=== PATIENT | male | born 1985 | race African-American/Black ===

== ENCOUNTER 2016-09-20 15:20 | Emergency (ER) | payer OTHER ==
--- NOTE | ~2016-09-20 | CR151 ---
[facility] A Service of [facility] & [facility] RADIOLOGY TEXT RESULTS PATIENT: HANNAH MICHELLE LOCATION: [facility] : [birth year] UNIT #: [id number] AGE: [address]: KHAI DELEON APRN SEX: M ORDER DR: [id number] [facility] [address] [place], [place] [address] [id number] E MR#: [id number] Acc #: [id number] NAME: HANNAH MICHELLE : 1985 SEX: M STUDY DATE/TIME: 09/20/2016 19:09 UNIT: [facility] ROOM: STUDY DESCRIPTION: CR Hip Min 2 Views Rt Attending Physician: Khai Deleon Aprn Ordering Physician: Khai Deleon Aprn Primary Care Physician: [facility] MEDICAL IMAGING REPORT This report is preliminary unless electronic signature is present EXAM Right hip 3 views 09/20/2016 HISTORY Right hip pain status post fall today. FINDINGS AP and oblique examination of the hip shows adequate mineralization of the bones and a normal anatomic relationship of the femoral head with the acetabulum. There are no hypertrophic changes, fractures, dislocation, or joint capsular distension. No radiopaque foreign body is present about the soft tissues of the hip. IMPRESSION Normal hip. Dictated by... Terry Kong M.D. THIS IS AN ELECTRONICALLY VERIFIED REPORT Terry Kong M.D. at 09/21/2016 2:13 PM MARCOS/jose a TD: 09/21/2016 06:29 JOB #: [id number] MEDICAL IMAGING REPORT Page 1 of 1 COPY
--- NOTE | ~2016-09-20 | CR253 ---
[facility] A Service of [facility] & [facility] RADIOLOGY TEXT RESULTS PATIENT: HANNAH MICHELLE LOCATION: [facility] : 89 UNIT #: [id number] AGE: [address]: KHAI DELEON APRN SEX: M ORDER DR: [id number] [place], [place] [address] [id number] E MR#: [id number] Acc #: [id number] NAME: HANNAH MICHELLE : 1985 SEX: M STUDY DATE/TIME: 09/20/2016 19:08 UNIT: [facility] ROOM: STUDY DESCRIPTION: CR Tibia and Fibula 2 Views Rt Attending Physician: Khai Deleon Aprn Ordering Physician: Khai Deleon Aprn Primary Care Physician: [facility] MEDICAL IMAGING REPORT This report is preliminary unless electronic signature is present EXAM Right tib-fib, 09/20 INDICATION Leg pain today. Possible fall. FINDINGS There is no evidence of fracture, dislocation, or radiopaque foreign body. IMPRESSION Normal tibia and fibula. Dictated by... Jose De Jesus Calderón Jr., M.D. THIS IS AN ELECTRONICALLY VERIFIED REPORT Jose De Jesus Calderón Jr., M.D. at 09/21/2016 8:47 PM ABRAHAM/vincent TD: 09/21/2016 05:24 JOB #: [id number] MEDICAL IMAGING REPORT Page 1 of 1 COPY
[2016-09-20 17:14] LABS: URINE SOURCE CLEAN CATCH
[2016-09-20 17:23] LABS: URINE APPEARANCE CLEAR; URINE BILIRUBIN NEG (NEG); URINE BLOOD NEG (NEG); URINE COLOR YELLOW; URINE GLUCOSE NEG (NEG); URINE KETONE NEG (NEG); URINE LEUKOCYTE ESTERASE NEG (NEG); URINE NITRATE NEG (NEG); URINE PROTEIN NEG (NEG); URINE SPECIFIC GRAVITY 1.019 (1.003-1.035); URINE UROBILINOGEN 0.2 MG/DL (NEG)
[2016-09-20 17:28] LABS: CULTURE INDICATED? NO
[2016-09-20 17:55] LABS: BASOPHIL% 0.6 % (0-2.5); EOSINOPHIL# 0.1 X10e3 (0-0.7); EOSINOPHIL% 2.4 % (0.0-7.0); HEMATOCRIT 46.5 % (38.0-50.0); HEMOGLOBIN 15.7 gm/dL (13.0-16.0); LYMPHOCYTE# 2.2 X10e3 (1.0-3.5); LYMPHOCYTE% 38.5 % (17.0-45.0); MEAN CELL VOLUME 90.8 FL (83-96); MEAN CORPUSCULAR HEMOGLOBIN 30.7 PG (28-34); MEAN CORPUSCULAR HGB CONC 33.7 g/dL (30-36); MEAN PLATELET VOLUME 9.8 FL (6.5-11.5); MONOCYTE# 0.4 X10e3 (0-1.0); MONOCYTE% 6.1 % (3.0-12.0); NEUTROPHIL% 52.4 % (40-75); RED BLOOD COUNT 5.11 X10e (3.90-5.60); RED CELL DISTRIBUTION WIDTH 13.3 % (11.0-15.5); WHITE BLOOD COUNT 5.8 X10e3 (4.0-10.5)
[2016-09-20 17:57] LABS: DIFF IND NO; PLATELET COUNT 220 X10e3 (140-420)
[2016-09-20 18:04] LABS: ALBUMIN SERUM 4.4 g/dL (3.5-5.0); BILIRUBIN, DIRECT 0.1 mg/dL (0.0-0.2); BILIRUBIN,INDIRECT 0.6 mg/dL (0.0-0.9); BILIRUBIN,TOTAL 0.7 mg/dL (0.2-2.0); BUN/CREATININE RATIO 17.5; CALCIUM SERUM 9.4 mg/dL (8.4-10.2); CREATININE SERUM 0.8 mg/dL (0.6-1.4); GLOM FILT RATE Estimated 121.6 mL/min (>60); POTASSIUM 4.2 mmol/L (3.5-5.1); PROTEIN TOTAL SERUM 8.2 g/dL (6.0-8.3)
== END 2016-09-20 21:05 | disposition home or self-care (01) ==
LOC: CED 15:20
PROVIDERS: Emergency Medicine
DX: S70.01XA Contusion of right hip, initial encounter (principal); S80.11XA Contusion of right lower leg, initial encounter; W18.30XA Fall on same level, unspecified, initial encounter; Y93.89 Activity, other specified; Y99.8 Other external cause status
CPT/HCPCS: 36415; 73502; 73590; 80048; 80076; 81003; 83690; 85025; 99284